=== PATIENT | male | born 1995 | race Caucasian/White ===

== ENCOUNTER 2019-07-20 18:32 | Emergency (ER) | payer OTHER, SELFPAY ==
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
[2019-07-20 18:41] VITALS: BP 137/86; PULSE 95; RESP 15; TEMP 36.9; O2SAT 100
--- NOTE | 2019-07-20 19:20 | DI.RAD_ITS ---
SYMPTOM/DIAGNOSIS: FELL, RT CHEST AND STERNAL PAIN PA AND LATERAL CHEST: The heart is normal in size. The lungs are clear. The mediastinal structures and pleura appear intact. CONCLUSION: Normal chest.
--- NOTE | 2019-07-20 20:15 | DI.VRAD_ITS ---
EXAM: XR Chest, 2 Views EXAM DATE/TIME: 07/20/2019 7:56 PM CLINICAL HISTORY: 23 years old, male; Sternal or substernal pain; Patient HX: Fall, chest pain right and sternal TECHNIQUE: Imaging protocol: XR of the chest Views: 2 views. COMPARISON: No relevant prior studies available. FINDINGS: Lungs: Unremarkable. No consolidation. Pleural space: Unremarkable. No pleural effusion. No pneumothorax. Heart/Mediastinum: Unremarkable. No cardiomegaly. Bones/joints: Unremarkable. IMPRESSION: No acute findings. Dictated and Authenticated by: Pj Chavez MD. Ordering:JUANJOSE Bolden MD
[2019-07-20 20:29] VITALS: BP 137/80; PULSE 87; TEMP 37.1
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
== END 2019-07-20 20:45 | disposition home or self-care (01) ==
PROVIDERS: Emergency Provider Physician Assistant
DX: S20.211A Contusion of right front wall of thorax, initial encounter (principal); V17.0XXA Pedal cycle driver injured in collision with fixed or stationary object in nontraffic accident, initial encounter
CPT/HCPCS: 99283; 71046; 99282